=== PATIENT | male | born 1975 | race Caucasian/White ===

== ENCOUNTER 2017-11-04 21:28 | Emergency (ER) | payer SELFPAY ==
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
[2017-11-04 23:46] VITALS: BP 138/72
== END 2017-11-04 23:46 | disposition home or self-care (01) ==
LOC: ED 21:28
DX: M54.9 Dorsalgia, unspecified (principal); Z87.891 Personal history of nicotine dependence; V89.2XXA Person injured in unspecified motor-vehicle accident, traffic, initial encounter; Y92.9 Unspecified place or not applicable
CPT/HCPCS: 72128; 99282